=== PATIENT | female | born 1945 | race Caucasian/White ===

== ENCOUNTER 2018-07-05 13:16 | Outpatient (REF) | payer MEDICARE, BC, SELFPAY ==
[2018-07-05 23:10] LABS: ESR 8 MM/HR (0-30)
[2018-07-05 23:26] LABS: C-Reactive Protein 0.41 mg/dL (0.0-0.3)
== END 2018-07-05 13:36 ==
LOC: NCHCN 13:16
PROVIDERS: PCP Internal Medicine; Visit Provider Internal Medicine
DX: M35.3 Polymyalgia rheumatica (principal)
CPT/HCPCS: 85652; 86140

== ENCOUNTER 2018-10-27 08:59 | Outpatient (REF) | payer MEDICARE, BC, SELFPAY ==
[2018-10-27 22:03] LABS: Anion Gap 7.1 mmol/L (3-11); BUN 21 mg/dL (7-18); CO2 31.9 mmol/L (21.0-32.0); CREATININE 0.85 mg/dL (0.55-1.02); Chloride 102 mmol/L (98-107); Cholesterol 307 mg/dL (50-200); Glucose 110 mg/dL (70-100); HDL Cholesterol 85 mg/dL (40-60); LDL CHOLESTEROL 194 mg/dL (<100); Sodium 141 mmol/L (136-145); Triglyceride 92 mg/dL (30-150)
== END 2018-10-27 09:19 ==
LOC: NCHCN 08:59
PROVIDERS: PCP Internal Medicine; Visit Provider Internal Medicine
DX: E78.5 Hyperlipidemia, unspecified (principal); I10 Essential (primary) hypertension
CPT/HCPCS: 80048; 80061; 83721

== ENCOUNTER 2018-11-02 09:38 | Outpatient (REF) | payer MEDICARE, BC, SELFPAY ==
[2018-11-02 21:14] LABS: ALT 55 U/L (12-78); AST 34 U/L (15-37); Albumin 3.9 g/dL (3.4-5.0); Alkaline Phosphatase 82 U/L (46-116); Bilirubin, Direct 0.11 mg/dL (0.00-0.20); Bilirubin, Total 0.3 mg/dL (0.2-1.0); C-Reactive Protein 0.69 mg/dL (0.0-0.3); Total Protein 7.1 g/dL (6.4-8.2)
[2018-11-02 21:44] LABS: ESR 9 MM/HR (0-30)
== END 2018-11-02 09:58 ==
LOC: NCHCN 09:38
PROVIDERS: PCP Internal Medicine; Visit Provider Internal Medicine
DX: M35.3 Polymyalgia rheumatica (principal); I10 Essential (primary) hypertension; E78.5 Hyperlipidemia, unspecified; M19.90 Unspecified osteoarthritis, unspecified site
CPT/HCPCS: 80076; 85652; 86140

== ENCOUNTER 2019-02-23 14:07 | Outpatient (REF) | payer MEDICARE, BC, SELFPAY ==
[2019-02-23 21:22] LABS: ESR 16 MM/HR (0-30)
== END 2019-02-23 14:27 ==
LOC: NCHCN 14:07
PROVIDERS: PCP Internal Medicine; Visit Provider Internal Medicine
DX: M35.3 Polymyalgia rheumatica (principal)
CPT/HCPCS: 85652; 86140

== ENCOUNTER 2020-04-01 08:27 | Outpatient (REF) | payer MEDICARE, BC, SELFPAY ==
[2020-04-01 22:15] LABS: Hemoglobin A1C 5.8 % (3.8-5.6)
[2020-04-01 22:31] LABS: ALT 51 U/L (14-59); AST 30 U/L (15-37); Albumin 4.4 g/dL (3.4-5.0); Alkaline Phosphatase 87 U/L (46-116); Anion Gap 10.2 mmol/L (3-11); BUN 18 mg/dL (7-18); Bilirubin, Total 0.7 mg/dL (0.2-1.0); CO2 29.8 mmol/L (21.0-32.0); CREATININE 0.76 mg/dL (0.55-1.02); Calcium 9.2 mg/dL (8.5-10.1); Calculated LDL 161 mg/dL (<100); Chloride 104 mmol/L (98-107); Cholesterol 274 mg/dL (<200); Glucose 102 mg/dL (74-106); HDL Cholesterol 99 mg/dL (40-60); Potassium 3.5 mmol/L (3.5-5.1); Sodium 144 mmol/L (136-145); Total Protein 7.3 g/dL (6.4-8.2); Triglyceride 73 mg/dL (<150)
== END 2020-04-01 08:47 ==
LOC: NCHCN 08:27
PROVIDERS: PCP Internal Medicine; Visit Provider Internal Medicine
DX: R73.03 Prediabetes (principal); I10 Essential (primary) hypertension; E78.5 Hyperlipidemia, unspecified
CPT/HCPCS: 80053; 80061; 83036

== ENCOUNTER 2020-10-03 10:58 | Outpatient (REF) | payer MEDICARE, BC, SELFPAY ==
[2020-10-03 21:23] LABS: HGB 14.5 g/dL (11.2-15.7)
[2020-10-03 21:42] LABS: Calculated LDL 156 mg/dL (<100); Cholesterol 259 mg/dL (<200); Glucose 102 mg/dL (74-106); HDL Cholesterol 84 mg/dL (40-60); Triglyceride 98 mg/dL (<150)
== END 2020-10-03 11:18 ==
LOC: NCHCN 10:58
PROVIDERS: PCP Internal Medicine; Visit Provider Internal Medicine
DX: R73.03 Prediabetes (principal); E78.5 Hyperlipidemia, unspecified
CPT/HCPCS: 80061; 82947; 85018

== ENCOUNTER 2021-04-02 08:07 | Outpatient (REF) | payer MEDICARE, BC, SELFPAY ==
[2021-04-02 13:35] LABS: Hemoglobin A1C 5.8 % (<5.7)
[2021-04-02 13:36] LABS: Anion Gap 5.7 mmol/L (3-11); BUN 21 mg/dL (7-18); CO2 31.3 mmol/L (21.0-32.0); CREATININE 0.7 mg/dL (0.55-1.02); Calcium 8.8 mg/dL (8.5-10.1); Calculated LDL 143 mg/dL (<100); Chloride 106 mmol/L (98-107); Cholesterol 247 mg/dL (<200); Glucose 101 mg/dL (74-106); HDL Cholesterol 75 mg/dL (40-60); Potassium 3.8 mmol/L (3.5-5.1); Sodium 143 mmol/L (136-145); Triglyceride 149 mg/dL (<150)
== END 2021-04-02 08:08 | disposition home or self-care (01) ==
LOC: NCHCN 08:07
PROVIDERS: PCP Internal Medicine; Visit Provider Internal Medicine
DX: R73.03 Prediabetes (principal); I10 Essential (primary) hypertension; E78.5 Hyperlipidemia, unspecified
CPT/HCPCS: 80048; 80061; 83036

== ENCOUNTER 2021-10-26 14:52 | Outpatient (REF) | payer MEDICARE, SELFPAY ==
[2021-10-26 15:18] LABS: Anion Gap 6.7 mmol/L (3-11); BUN 16 mg/dL (7-18); CO2 31.3 mmol/L (21.0-32.0); CREATININE 0.7 mg/dL (0.55-1.02); Calcium 9.2 mg/dL (8.5-10.1); Chloride 102 mmol/L (98-107); Glucose 106 mg/dL (74-106); Potassium 3.7 mmol/L (3.5-5.1); Sodium 140 mmol/L (136-145)
== END 2021-10-26 14:53 | disposition home or self-care (01) ==
LOC: NCHCN 14:52
PROVIDERS: PCP Internal Medicine; Visit Provider Internal Medicine
DX: E87.6 Hypokalemia (principal)
CPT/HCPCS: 80048

== ENCOUNTER 2022-04-01 17:52 | Outpatient (REF) | payer MEDICARE, SELFPAY ==
[2022-04-01 16:28] LABS: Hemoglobin A1C 5.9 % (<5.7)
[2022-04-01 16:33] LABS: ALT 127 U/L (14-59); AST 25 U/L (15-37); Albumin 3.8 g/dL (3.4-5.0); Alkaline Phosphatase 77 U/L (46-116); Anion Gap 10.7 mmol/L (3-11); BUN 21 mg/dL (7-18); Bilirubin, Total 0.7 mg/dL (0.2-1.0); CO2 26.3 mmol/L (21.0-32.0); CREATININE 0.7 mg/dL (0.55-1.02); Calcium 8.7 mg/dL (8.5-10.1); Calculated LDL 135 mg/dL (<100); Chloride 104 mmol/L (98-107); Cholesterol 235 mg/dL (<200); Glucose 107 mg/dL (74-106); HDL Cholesterol 88 mg/dL (40-60); Potassium 3.6 mmol/L (3.5-5.1); Sodium 141 mmol/L (136-145); Total Protein 6.2 g/dL (6.4-8.2); Triglyceride 60 mg/dL (<150)
== END 2022-04-01 17:53 | disposition home or self-care (01) ==
LOC: NCHCN 17:52
PROVIDERS: PCP Internal Medicine; Visit Provider Internal Medicine
DX: R73.03 Prediabetes (principal); I10 Essential (primary) hypertension; E78.5 Hyperlipidemia, unspecified
CPT/HCPCS: 80053; 80061; 83036

== ENCOUNTER 2022-10-19 14:12 | Outpatient (REF) | payer MEDICARE, SELFPAY ==
[2022-10-19 20:51] LABS: Abs Immature Grans 0.03 10^3/uL (0.0-0.06); Absolute Basophil Count 0.04 10^3/uL (0.0-0.2); Absolute Eosinophil Count 0.06 10^3/uL (0.0-0.7); Absolute Lymphocyte Count 1.53 10^3/uL (1.2-3.4); Absolute Monocyte Count 0.56 10^3/uL (0.1-0.8); Absolute Neutrophil Count 3.81 10^3/uL (1.2-6.7); Basophils % 0.7; HCT 42.3 % (36.0-46.0); HGB 14.2 g/dL (11.2-15.7); Immature Grans % 0.5; Lymphocytes % 25.4; MCH 29.7 pg (27.0-33.0); MCHC 33.6 % (32.0-36.0); MCV 89 fL (80-95); MPV 9.7 fL (8.0-11.0); Monocytes % 9.3; Neutrophils % 63.1; Platelet Count 277 10^3/uL (130-400); RBC 4.78 10^6/uL (3.93-5.22); RDW-SD 42.5 fL; WBC 6.03 10^3/uL (4.4-10.8)
[2022-10-19 20:56] LABS: ESR 27 mm/hr (0-30)
[2022-10-19 21:09] LABS: ALT 42 U/L (14-59); AST 27 U/L (15-37); Albumin 3.6 g/dL (3.4-5.0); Alkaline Phosphatase 109 U/L (46-116); Anion Gap 6.9 mmol/L (3-11); BUN 24 mg/dL (7-18); Bilirubin, Total 0.3 mg/dL (0.2-1.0); C-Reactive Protein 2.26 mg/dL (0.0-0.3); CO2 31.1 mmol/L (21.0-32.0); CREATININE 0.8 mg/dL (0.55-1.02); Calcium 9.1 mg/dL (8.5-10.1); Chloride 105 mmol/L (98-107); Estimated GFR 76.79 (mL/min/1.73m2); Glucose 103 mg/dL (74-106); Potassium 3.5 mmol/L (3.5-5.1); Sodium 143 mmol/L (136-145); Total Protein 6.8 g/dL (6.4-8.2)
[2022-10-19 21:44] LABS: Hemoglobin A1C 5.8 % (<5.7)
[2022-10-20 17:08] LABS: Rheumatoid Factor <8.6 IU/mL (<12.0)
[2022-10-21 10:57] LABS: Lyme Ab w Rflx to Lyme Confirm Negative (Negative)
[2022-10-23 17:40] LABS: Anaplasma phagocytophilum Negative (Negative); B. miyamotoi PCR Negative (Negative); Babesia divergens/MO-1 Negative (Negative); Babesia duncani Negative (Negative); Babesia microti Negative (Negative); Ehrlichia chaffeensis Negative (Negative); Ehrlichia ewingii/canis Negative (Negative); Ehrlichia muris eauclairensis Negative (Negative)
[2022-10-25 15:27] LABS: ANA Interpretation Negative (Negative)
== END 2022-10-19 14:13 | disposition home or self-care (01) ==
LOC: NCHCN 14:12
PROVIDERS: PCP Internal Medicine; Visit Provider Nurse Practitioner Family
DX: R73.09 Other abnormal glucose (principal); M25.50 Pain in unspecified joint
CPT/HCPCS: 80053; 85652; 87798; 83036; 85025; 86038; 86140; 86431; 86618

== ENCOUNTER 2022-10-28 09:44 | Outpatient (REF) | payer MEDICARE, SELFPAY ==
[2022-10-28 15:12] LABS: ESR 19 mm/hr (0-30)
[2022-10-28 15:20] LABS: C-Reactive Protein 0.63 mg/dL (0.0-0.3)
== END 2022-10-28 09:45 | disposition home or self-care (01) ==
LOC: NCHCN 09:44
PROVIDERS: PCP Internal Medicine; Visit Provider Nurse Practitioner Family
DX: M35.3 Polymyalgia rheumatica (principal)
CPT/HCPCS: 85652; 86140

== ENCOUNTER 2022-12-13 13:27 | Outpatient (REF) | payer MEDICARE, SELFPAY ==
[2022-12-13 14:45] LABS: ESR 2 mm/hr (0-30)
[2022-12-13 15:03] LABS: C-Reactive Protein < 0.05 mg/dL (0.0-0.3)
== END 2022-12-13 13:28 | disposition home or self-care (01) ==
LOC: NCHCN 13:27
PROVIDERS: PCP Internal Medicine; Visit Provider Internal Medicine
DX: M25.50 Pain in unspecified joint (principal)
CPT/HCPCS: 85652; 86140

== ENCOUNTER 2023-01-18 16:27 | Outpatient (REF) | payer MEDICARE, SELFPAY ==
[2023-01-18 21:42] LABS: ESR 6 mm/hr (0-30)
[2023-01-18 21:51] LABS: C-Reactive Protein < 0.05 mg/dL (0.0-0.3)
== END 2023-01-18 16:28 | disposition home or self-care (01) ==
LOC: NCHCN 16:27
PROVIDERS: PCP Internal Medicine; Visit Provider Nurse Practitioner Family
DX: M35.3 Polymyalgia rheumatica (principal)
CPT/HCPCS: 85652; 86140

== ENCOUNTER 2023-09-30 16:06 | Outpatient (REF) | payer MEDICARE, SELFPAY ==
[2023-09-30 14:42] LABS: ALT 49 U/L (14-59); AST 40 U/L (15-37); Albumin 3.6 g/dL (3.4-5.0); Alkaline Phosphatase 78 U/L (46-116); Anion Gap 9.4 mmol/L (3-11); BUN 24 mg/dL (7-18); Bilirubin, Total 0.6 mg/dL (0.2-1.0); CO2 27.6 mmol/L (21.0-32.0); CREATININE 0.7 mg/dL (0.55-1.02); Calcium 9.5 mg/dL (8.5-10.1); Chloride 102 mmol/L (98-107); Estimated GFR 89.58 (mL/min/1.73m2); Glucose 97 mg/dL (74-106); Potassium 3.4 mmol/L (3.5-5.1); Sodium 139 mmol/L (136-145)
== END 2023-09-30 16:07 | disposition home or self-care (01) ==
LOC: NCHCN 16:06
PROVIDERS: PCP Internal Medicine; Visit Provider Internal Medicine
DX: I10 Essential (primary) hypertension (principal)
CPT/HCPCS: 80053

== ENCOUNTER 2023-10-20 09:12 | Outpatient (REF) | payer MEDICARE, SELFPAY | END 2023-10-20 09:13 | disposition home or self-care (01) | LOC: NCHCN 09:12 | PROVIDERS: PCP Internal Medicine; Visit Provider Internal Medicine | DX: E87.6 Hypokalemia (principal) | CPT/HCPCS: 84132 ==

== ENCOUNTER 2024-02-08 13:17 | Outpatient (REF) | payer MEDICARE, SELFPAY ==
[2024-02-08 14:38] LABS: C-Reactive Protein 0.83 mg/dL (<or=0.5)
[2024-02-08 14:49] LABS: ESR 19 mm/hr (0-30)
== END 2024-02-08 13:18 | disposition home or self-care (01) ==
LOC: NCHCN 13:17
PROVIDERS: PCP Internal Medicine; Visit Provider Internal Medicine
DX: M54.50 Low back pain, unspecified (principal)
CPT/HCPCS: 85652; 86140

== ENCOUNTER 2024-04-23 13:16 | Outpatient (REF) | payer MEDICARE, SELFPAY ==
[2024-04-23 21:29] LABS: HCT 43.9 % (36.0-46.0); HGB 14.5 g/dL (11.2-15.7); MCH 28.5 pg (27.0-33.0); MCV 86 fL (80-95); MPV 9.4 fL (8.0-11.0); Platelet Count 253 10^3/uL (130-400); RBC 5.08 10^6/uL (3.93-5.22); RDW 13.3 % (11.7-14.6); RDW-SD 42.6 fL; WBC 7.81 10^3/uL (4.4-10.8)
[2024-04-23 21:56] LABS: ALT 56 U/L (14-59); AST 30 U/L (15-37); Albumin 3.6 g/dL (3.4-5.0); Alkaline Phosphatase 111 U/L (46-116); BUN 18 mg/dL (7-18); CREATININE 0.6 mg/dL (0.55-1.02); Calcium 9.2 mg/dL (8.5-10.1); Chloride 100 mmol/L (98-107); Estimated GFR 92.97 (mL/min/1.73m2); Glucose 108 mg/dL (74-106); Potassium 3.5 mmol/L (3.5-5.1); Sodium 136 mmol/L (136-145); TSH 1.44 uIU/Ml (0.36-3.74)
[2024-04-27 00:17] LABS: Anaplasma phagocytophilum Negative (Negative); B. miyamotoi PCR Negative (Negative); Babesia divergens/MO-1 Negative (Negative); Babesia duncani Negative (Negative); Babesia microti Negative (Negative); Ehrlichia chaffeensis Negative (Negative); Ehrlichia ewingii/canis Negative (Negative); Ehrlichia muris eauclairensis Negative (Negative)
[2024-05-02 15:56] LABS: Lyme Ab w Rflx to Lyme Confirm Negative (Negative)
== END 2024-04-23 13:17 | disposition home or self-care (01) ==
LOC: NCHCN 13:16
PROVIDERS: PCP Internal Medicine; Visit Provider Nurse Practitioner Family
DX: I10 Essential (primary) hypertension (principal); F41.1 Generalized anxiety disorder; R73.09 Other abnormal glucose; M19.29 Secondary osteoarthritis, other specified site; Z11.8 Encounter for screening for other infectious and parasitic diseases
CPT/HCPCS: 80053; 85027; 87798; 84443; 86618

== ENCOUNTER 2024-06-13 12:32 | Outpatient (REF) | payer MEDICARE, SELFPAY ==
[2024-06-13 15:28] LABS: Vitamin B12 473 pg/mL (193-986)
== END 2024-06-13 12:33 | disposition home or self-care (01) ==
LOC: NCHCN 12:32
PROVIDERS: PCP Internal Medicine; Visit Provider Internal Medicine
DX: R41.3 Other amnesia (principal)
CPT/HCPCS: 82607

== ENCOUNTER 2024-08-29 17:45 | Outpatient (REF) | payer MEDICARE, SELFPAY ==
[2024-08-29 21:25] LABS: ESR 16 mm/hr (0-30)
== END 2024-08-29 17:46 | disposition home or self-care (01) ==
LOC: NCHCN 17:45
PROVIDERS: PCP Internal Medicine; Visit Provider Internal Medicine
DX: M25.511 Pain in right shoulder (principal); M25.512 Pain in left shoulder; R79.82 Elevated C-reactive protein (CRP)
CPT/HCPCS: 85652; 86140

== ENCOUNTER 2024-09-18 11:45 | Outpatient (REF) | payer MEDICARE, SELFPAY ==
[2024-09-18 14:35] LABS: HCT 45.5 % (36.0-46.0); HGB 14.2 g/dL (11.2-15.7); MCH 28.5 pg (27.0-33.0); MCHC 31.2 % (32.0-36.0); MCV 91 fL (80-95); MPV 10.2 fL (8.0-11.0); Platelet Count 208 10^3/uL (130-400); RBC 4.98 10^6/uL (3.93-5.22); RDW 14.4 % (11.7-14.6); RDW-SD 48.6 fL
[2024-09-18 14:47] LABS: ALT 68 U/L (14-59); AST 36 U/L (15-37); Albumin 3.7 g/dL (3.4-5.0); Alkaline Phosphatase 112 U/L (46-116); Anion Gap 5.9 mmol/L (3-11); BUN 25 mg/dL (7-18); Bilirubin, Total 0.45 mg/dL (0.2-1.0); CO2 31.1 mmol/L (21.0-32.0); CREATININE 0.7 mg/dL (0.55-1.02); Calcium 9.2 mg/dL (8.5-10.1); Calculated LDL 116 mg/dL (<100); Chloride 107 mmol/L (98-107); Cholesterol 233 mg/dL (<200); Estimated GFR 89.02 (mL/min/1.73m2); Glucose 96 mg/dL (74-106); HDL Cholesterol 101 mg/dL (40-60); Sodium 144 mmol/L (136-145); Total Protein 7.1 g/dL (6.4-8.2); Triglyceride 81 mg/dL (<150)
[2024-09-18 15:13] LABS: Hemoglobin A1C 5.8 % (<5.7)
== END 2024-09-18 11:46 | disposition home or self-care (01) ==
LOC: NCHCN 11:45
PROVIDERS: PCP Internal Medicine; Visit Provider Internal Medicine
DX: R74.01 Elevation of levels of liver transaminase levels (principal); R73.03 Prediabetes
CPT/HCPCS: 80053; 80061; 85027; 83036

== ENCOUNTER 2024-11-05 12:35 | Outpatient (REF) | payer MEDICARE, SELFPAY ==
[2024-11-05 16:45] LABS: Bacteria Rare HPF (Negative); C & S Indicated? C&S Done As Ordered; Casts Negative LPF (Negative); Crystals Negative HPF (Negative); Epithelial Cells Rare HPF (Negative); Mucus Trace (Negative); RBC 0-2 HPF (0-2); WBC 0-2 HPF (0-5)
== END 2024-11-05 12:36 | disposition home or self-care (01) ==
LOC: NCHCN 12:35
PROVIDERS: PCP Internal Medicine; Visit Provider Internal Medicine
DX: R32 Unspecified urinary incontinence (principal); R82.89 Other abnormal findings on cytological and histological examination of urine
CPT/HCPCS: 81015; 87086

== ENCOUNTER 2024-12-24 15:13 | Outpatient (REF) | payer MEDICARE, SELFPAY ==
[2024-12-24 16:56] LABS: ALT 63 U/L (14-59); AST 31 U/L (15-37); Albumin 3.9 g/dL (3.4-5.0); Alkaline Phosphatase 95 U/L (46-116); BUN 29 mg/dL (7-18); Bilirubin, Total 0.4 mg/dL (0.2-1.0); CREATININE 0.6 mg/dL (0.55-1.02); Calcium 9.4 mg/dL (8.5-10.1); Chloride 106 mmol/L (98-107); Estimated GFR 92.39 (mL/min/1.73m2); Glucose 101 mg/dL (74-106); Sodium 143 mmol/L (136-145); Total Protein 6.7 g/dL (6.4-8.2)
== END 2024-12-24 15:14 | disposition home or self-care (01) ==
LOC: NCHCN 15:13
PROVIDERS: PCP Internal Medicine; Visit Provider Internal Medicine
DX: R74.01 Elevation of levels of liver transaminase levels (principal)
CPT/HCPCS: 80053

== ENCOUNTER 2025-03-25 21:20 | Outpatient (REF) | payer MEDICARE, SELFPAY ==
[2025-03-25 21:41] LABS: HGB 15.5 g/dL (11.2-15.7); MCH 29.9 pg (27.0-33.0); MCHC 33.7 % (32.0-36.0); MCV 89 fL (80-95); Platelet Count 189 10^3/uL (130-400); RBC 5.18 10^6/uL (3.93-5.22); RDW 12.8 % (11.7-14.6); RDW-SD 41.9 fL; WBC 5.48 10^3/uL (4.4-10.8)
[2025-03-25 22:04] LABS: ALT 125 U/L (14-59); AST 42 U/L (15-37); Albumin 3.9 g/dL (3.4-5.0); Alkaline Phosphatase 104 U/L (46-116); Anion Gap 6.6 mmol/L (3-11); BUN 17 mg/dL (7-18); Bilirubin, Total 0.8 mg/dL (0.2-1.0); CO2 30.4 mmol/L (21.0-32.0); CREATININE 0.6 mg/dL (0.55-1.02); Calcium 9.2 mg/dL (8.5-10.1); Chloride 105 mmol/L (98-107); Estimated GFR 92.39 (mL/min/1.73m2); Glucose 101 mg/dL (74-106); Potassium 4.1 mmol/L (3.5-5.1); Sodium 142 mmol/L (136-145); TSH 1.38 uIU/mL (0.36-3.74); Total Protein 6.8 g/dL (6.4-8.2)
== END 2025-03-25 21:21 | disposition home or self-care (01) ==
LOC: NCHCN 21:20
PROVIDERS: PCP Internal Medicine; Visit Provider Internal Medicine
DX: R74.01 Elevation of levels of liver transaminase levels (principal)
CPT/HCPCS: 80053; 85027; 84443

== ENCOUNTER 2025-09-25 10:44 | Outpatient (REF) | payer MEDICARE, SELFPAY ==
[2025-09-25 16:32] LABS: ALT 64 U/L (10-49); AST 45 U/L (<34); Albumin 4.1 g/dL (3.2-5.0); Alkaline Phosphatase 84 U/L (46-116); Bilirubin, Direct 0.1 mg/dL (<=0.3); Bilirubin, Total 0.6 mg/dL (0.2-1.2); Total Protein 6.3 g/dL (5.7-8.2)
== END 2025-09-25 10:45 | disposition home or self-care (01) ==
LOC: NCHCN 10:44
PROVIDERS: PCP Internal Medicine; Visit Provider Internal Medicine
DX: R74.01 Elevation of levels of liver transaminase levels (principal)
CPT/HCPCS: 80076